=== PATIENT | male | born 1950 | race Caucasian/White ===

== ENCOUNTER 2018-11-25 05:24 | Inpatient (IN) | payer MEDICARE | END 2018-11-27 10:10 | disposition home health service (06) | LOC: PAS IN 05:24 → ORTHO 4S 11:20 | PROC: 0SRC0J9 Replacement of Right Knee Joint with Synthetic Substitute, Cemented, Open Approach (ICD-10-PCS; principal; 2018-11-25 07:10) | DX: M17.11 Unilateral primary osteoarthritis, right knee (principal); I48.91 Unspecified atrial fibrillation; I10 Essential (primary) hypertension ==